=== PATIENT | male | born 1945 | race Caucasian/White ===

== ENCOUNTER 2020-10-17 10:45 | Outpatient (CLI) | payer OTHER | END 2020-10-17 11:07 | disposition home or self-care (01) | LOC: TOM 10:45 | DX: N20.0 Calculus of kidney (principal); A08.8 Other specified intestinal infections; K57.90 Diverticulosis of intestine, part unspecified, without perforation or abscess without bleeding ==

== ENCOUNTER 2022-01-25 10:14 | Outpatient (CLI) | payer OTHER ==
[~2022-01-25 10:14] MED LIST: ACETAMINOPHEN-1 EAC2 PO; CATAFLAM50 MG PO; CELEBREX200MG PO; DICLOFENAC POTA50 MG PO; GABAPENTIN300 M2 PO; MEDROLPACK PO; NABUMETONE750 MG PO; NORFLEX100MG PO; ROBAXIN-750750 MG PO; VOLTAREN ARTHRI20 GM TOP
== END 2022-01-25 10:20 | disposition home or self-care (01) ==
LOC: TOM 10:14
PROVIDERS: ATTEND Internal Medicine
DX: N30.20 Other chronic cystitis without hematuria (principal)
CPT/HCPCS: 74177; Q9965

== ENCOUNTER 2022-04-13 12:51 | Outpatient (CLI) | payer OTHER | END 2022-04-13 13:00 | disposition home or self-care (01) | LOC: RAD 12:51 | DX: R07.82 Intercostal pain (principal); R07.9 Chest pain, unspecified ==

== ENCOUNTER 2022-05-13 14:16 | Outpatient (CLI) | payer OTHER | END 2022-05-13 15:02 | disposition home or self-care (01) | LOC: RAD 14:16 | PROVIDERS: ATTEND General Practice | DX: M17.0 Bilateral primary osteoarthritis of knee (principal); M51.36 Other intervertebral disc degeneration, lumbar region | CPT/HCPCS: 72148 ==

== ENCOUNTER 2022-05-17 15:42 | Outpatient (CLI) | payer OTHER | END 2022-05-17 15:48 | disposition home or self-care (01) | LOC: RAD 15:42 | PROVIDERS: ATTEND Urology | DX: N20.0 Calculus of kidney (principal) ==

== ENCOUNTER 2022-07-20 14:04 | Outpatient (CLI) | payer OTHER | END 2022-07-20 14:23 | disposition home or self-care (01) | LOC: RAD 14:04 | PROVIDERS: ATTEND Orthopaedic Surgery Adult Reconstructive Orthopaedic Surgery | DX: M16.10 Unilateral primary osteoarthritis, unspecified hip (principal); Z96.653 Presence of artificial knee joint, bilateral ==

== ENCOUNTER → 2022-07-26 | Outpatient (CLI) | payer OTHER | END | disposition home or self-care (01) | LOC: SONOGRAMA 10:43 | DX: R10.13 Epigastric pain (principal) ==

== ENCOUNTER 2022-07-30 12:06 | Outpatient (CLI) | payer OTHER | END 2022-07-30 12:10 | disposition home or self-care (01) | LOC: MRI 12:06 | PROVIDERS: ATTEND Orthopaedic Surgery Orthopaedic Surgery of the Spine | DX: M47.892 Other spondylosis, cervical region (principal) | CPT/HCPCS: 72141 ==

== ENCOUNTER 2022-11-05 10:14 | Outpatient (CLI) | payer OTHER | END 2022-11-05 10:25 | disposition home or self-care (01) | LOC: RAD 10:14 | PROVIDERS: ATTEND Urology | DX: I48.91 Unspecified atrial fibrillation (principal); C61 Malignant neoplasm of prostate; N20.0 Calculus of kidney ==

== ENCOUNTER 2022-11-08 11:08 | Outpatient (CLI) | payer OTHER | END 2022-11-08 13:20 | disposition home or self-care (01) | LOC: RAD 11:08 | PROVIDERS: ATTEND Urology | DX: N20.0 Calculus of kidney (principal) ==

== ENCOUNTER 2022-11-16 08:23 | Inpatient (IN) | payer OTHER ==
[~2022-11-16] VITALS: Ht 177.8 cm; Wt 99.8 kg
[2022-11-16] MEDS ORDERED: GLIPIZIDE XL10 MG PO (14:41)
[2022-11-16] MEDS ORDERED: NORVASC5 MG PO (14:42)
[2022-11-16] MEDS ORDERED: TOPROL XL50 M1 PO (14:42)
[2022-11-17] MEDS ORDERED: JANUVIA100 MG (10:05)
[2022-11-17] MEDS ORDERED: ACETAMINOPHEN-1 EAC2 (10:05)
[2022-11-17] MEDS ORDERED: METFORMIN HCL500 M1 (10:05)
[2022-11-17] MEDS ORDERED: TRULICITY0.75 MG/0. (10:05)
[2022-11-17] MEDS ORDERED: OLMESARTAN MEDO40 MG (10:05)
[2022-11-17] MEDS ORDERED: CLOPIDOGREL BIS75 MG (10:06)
[2022-11-17] MEDS ORDERED: ELIQUIS5 MG (10:06)
== END 2022-11-19 09:12 | disposition home or self-care (01) | DRG 661 ==
LOC: SURH 11-17 06:18 → O/R 11-17 06:18 → SURG 11-17 10:00 → SURH 11-17 13:28
PROVIDERS: ADMIT Urology; ATTEND Urology
PROC: 0TC18ZZ Extirpation of Matter from Left Kidney, Via Natural or Artificial Opening Endoscopic (ICD-10-PCS; 2022-11-17)
PROC: BT1FYZZ Fluoroscopy of Left Kidney, Ureter and Bladder using Other Contrast (ICD-10-PCS; 2022-11-17)
PROC: 0T744DZ Dilation of Left Kidney Pelvis with Intraluminal Device, Percutaneous Endoscopic Approach (ICD-10-PCS; principal; 2022-11-17 10:00)
DX: N20.0 Calculus of kidney (principal); I10 Essential (primary) hypertension; E11.9 Type 2 diabetes mellitus without complications; Z79.84 Long term (current) use of oral hypoglycemic drugs

== ENCOUNTER 2023-01-24 10:44 | Outpatient (CLI) | payer OTHER ==
[~2023-01-24 10:44] MED LIST changes: +ACETAMINOPHEN-1 EAC2; +CLOPIDOGREL BIS75 MG; +ELIQUIS5 MG; +GLIPIZIDE XL10 MG PO; +JANUVIA100 MG; +METFORMIN HCL500 M1; +NORVASC5 MG PO; +OLMESARTAN MEDO40 MG; +TOPROL XL50 M1 PO; +TRULICITY0.75 MG/0.
== END 2023-01-24 13:22 | disposition home or self-care (01) ==
LOC: RAD 10:44
PROVIDERS: ATTEND Orthopaedic Surgery Adult Reconstructive Orthopaedic Surgery
DX: M17.0 Bilateral primary osteoarthritis of knee (principal); Z96.651 Presence of right artificial knee joint; Z96.652 Presence of left artificial knee joint

== ENCOUNTER 2023-05-23 09:29 | Outpatient (CLI) | payer OTHER | END 2023-05-23 09:38 | disposition home or self-care (01) | LOC: MRI 09:29 | PROVIDERS: ATTEND Internal Medicine | DX: M54.50 Low back pain, unspecified (principal) | CPT/HCPCS: 72148 ==

== ENCOUNTER 2023-06-20 10:02 | Outpatient (CLI) | payer OTHER ==
[~2023-06-20 10:02] MED LIST changes: +DULOXETINE HCL30 MG PO
== END 2023-06-20 10:10 | disposition home or self-care (01) ==
LOC: TOM 10:02
PROVIDERS: ATTEND Internal Medicine
DX: K91.89 Other postprocedural complications and disorders of digestive system (principal)

== ENCOUNTER 2023-06-28 09:55 | Outpatient (CLI) | payer OTHER | END 2023-06-28 10:12 | disposition home or self-care (01) | LOC: TOM 09:55 | PROVIDERS: ATTEND Internal Medicine | DX: R52 Pain, unspecified (principal) ==

== ENCOUNTER 2024-05-07 09:51 | Outpatient (CLI) | payer OTHER | END 2024-05-07 10:01 | disposition home or self-care (01) | LOC: MRI 09:51 | PROVIDERS: ATTEND Internal Medicine | DX: M19.90 Unspecified osteoarthritis, unspecified site (principal) | CPT/HCPCS: 72148; 73718 ==

== ENCOUNTER 2024-11-09 11:49 | Outpatient (CLI) | payer OTHER | END 2024-11-09 11:59 | disposition home or self-care (01) | LOC: TOM 11:49 | PROVIDERS: ATTEND Internal Medicine | DX: R04.2 Hemoptysis (principal); R91.8 Other nonspecific abnormal finding of lung field | CPT/HCPCS: 70490; 71270; Q9965 ==

== ENCOUNTER 2025-01-25 13:52 | Outpatient (CLI) | payer OTHER | END 2025-01-25 13:55 | disposition home or self-care (01) | LOC: RAD 13:52 | PROVIDERS: ATTEND Pulmonary Function Technologist | DX: J18.9 Pneumonia, unspecified organism (principal) ==

== ENCOUNTER → 2025-02-04 09:26 | Outpatient (CLI) | payer OTHER | END | disposition home or self-care (01) | LOC: TOM 09:26 | DX: R19.8 Other specified symptoms and signs involving the digestive system and abdomen (principal) | CPT/HCPCS: 71260; Q9965 ==